=== PATIENT | female | born 1960 | race Caucasian/White ===

== ENCOUNTER 2017-03-11 20:53 | Emergency (ER) | payer MEDICARE, BC ==
[~2017-03-11] VITALS: Ht 172.7 cm; Wt 86.0 kg
[~2017-03-11 20:53] MED LIST: CELE200C PO; DILA4TAB10 PO; DOCU1CAP39 PO; DULO30 PO; DULO60 PO; EPIP0.3I IM; ESTR.3 PO; FENT75DI TD; LEVO.15 PO; LISI-363 PO; LORA-392 PO; PRAV20 PO; PROM25TA5 PO; PROT40TA PO; PROV200T11 PO; VITA20003 PO
[2017-03-11 20:56] VITALS: BP 142/90; PULSE 87; RESP 16; TEMP 98.7; O2SAT 98
[2017-03-11] MEDS ORDERED: CLINDAMYCIN INJ 600 MG in SODIUM CHLORIDE 0.9% INJ 100 ML IV ONE (22:15)
--- NOTE | 2017-03-11 22:27 | PD ---
HPI Chief Complaint: Skin Problem Time Seen by Provider: 22:23 Travel History International Travel<30 days: No Contact w/Intl Traveler<30days: No Traveled to known affect area: No History of Present Illness HPI 57-year-old female that presents to the ED for evaluation of possible infection to her report. Patient has a port on her right upper chest for infusions for IVG for her MS. She reports that she went to the ER yesterday at the [facility] and they attempted to get some access from the port 3 times and were unsuccessful. Per patient she had no issues until today when she noticed that her area around her port is swelling and erythematous and pain. The touch. She denies ever having like this before. No fevers chills or sweats. No nausea or vomiting. She denies any chest discomfort and to the area where the port this. She states that he feels like it swelling and the skin looks different from prior. She states that the main reason she came here today is because she wants to make sure it is not infected as she does have a cruise tomorrow. Per patient the pain is 5 out of 10. 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) Cardiovascular Problems: Yes (PACEMAKER) High Cholesterol: Yes Chemotherapy: No Chest Pain: Yes (stress related) Congestive Heart Failure: No COPD: No Cerebrovascular Accident: No Diabetes: Yes (PRE) Diminished Hearing: No Diverticulitis: Yes Endocrine: Yes Gastrointestinal Disorders: Yes (GASTROPARESIS) GERD: Yes Genitourinary: Yes (Urinary retention) Headaches: Yes Hiatal Hernia: Yes Hypertension: Yes Immune Disorder: No Implanted Vascular Access Dvce: Yes (MEDIPORT) Kidney Stones: Yes Musculoskeletal: Yes (chronic neck and back pain) Neurologic: Yes (MS) Psychiatric: Yes Reproductive: No Immunizations Current: Yes Migraines: Yes Radiation Therapy: No Renal Failure: No Seizures: No Sickle Cell Disease: No Sleep Apnea: Yes Thyroid Disease: Yes (hypothyroidism) Ulcer: No Menopausal: Yes : 4 Para: 4 Past Surgical History Abdominal Surgery: Yes (BOWEL RESECTION, UMBLICAL HERNIA) AICD: No Appendectomy: Yes Arteriovenous Shunt: No Body Medical Devices: PACER/PORT Cardiac Surgery: Yes (pacemaker, ABLATION) Cholecystectomy: Yes Ear Surgery: No Endocrine Surgery: No Eye Surgery: No Genitourinary Surgery: No Gynecologic Surgery: Yes (hysterectomy) Hysterectomy: Yes Insulin Pump: No Joint Replacement: No Neurologic Surgery: Yes (3 disc surgeries in neck) Oral Surgery: No Pacemaker: Yes (MEDTRONIC) Thoracic Surgery: No Other Surgery: Yes (BOWEL RESECTION, APPY, ABLATION, PART HYSTERECTOMY, NECK SURGERIES, PM) Social History Alcohol Use: No Tobacco Use: No Substance Use: No Allergies-Medications (Allergen,Severity, Reaction): Coded Allergies: Hydrochlorothiazide (Verified Allergy, Severe, HIVES, 03/11/17) Imuran (Verified Allergy, Severe, GI UPSET, 03/11/17) Latex (Verified Allergy, Severe, ANAPHYLAXIS, 03/11/17) Phenazopyridine (Verified Allergy, Severe, 03/11/17) Pyridium (Verified Allergy, Severe, HIVES, 03/11/17) Levaquin (Verified Allergy, Intermediate, Hives, 03/11/17) MRI PRECAUTION (Verified Adverse Reaction, Severe, NON REVO PACEMAKER 09/20 KMD, 03/11/17) PER PATIENT PACEMAKER PLACED 6 YEARS AGO *MDRO Multi-Drug Resistant Organism (Verified Adverse Reaction, Unknown, ) MRSA history per patient. MRSA PCR Screens NEGATIVE 12/13/14 & 12/16/14. CLEARED BY INFECTION CONTROL MRSA PCR Screen NEGATIVE - 08/26/15 Uncoded Allergies: TECFIDERA (Allergy, Severe, 09/02/13) Reported Meds & Prescriptions Reported Meds & Active Scripts Active Dilaudid (Hydromorphone HCl) 4 Mg Tab 4 Mg PO Q6HR PRN Phenergan 25 mg (Promethazine HCl) 25 Mg Tab 25 Mg PO Q6H PRN Duragesic 75 Mcg/Hr (Fentanyl) 1 Patch Patch 1 Patch TD Q3D Ativan (Lorazepam) 0.5 Mg Tab 0.5 Mg PO Q6H PRN Pravastatin Sodium 20 Mg Tab 1 Tab PO HS Colace 100 Mg Cap (Docusate Sodium) 100 Mg Cap 100 Mg PO BID PRN Synthroid 150 mcg (Levothyroxine Sodium) 150 Mcg Tab 150 Mcg PO DAILY@0600 Duloxetine HCl 30 Mg Cap 30 Mg PO DAILY Duloxetine HCl 60 Mg Cap 60 Mg PO HS 30 Days Celebrex (Celecoxib) 200 Mg Cap 200 Mg PO DAILY Provigil 200 Mg Tab (Modafinil) 200 Mg Tab 200 Mg PO DAILY Vitamin D (Cholecalciferol) 2,000 Unit Tab 2,000 Unit PO DAILY Protonix (Pantoprazole Sodium) 40 Mg Tabdr 40 Mg PO DAILY Reported Lisinopril 20 mg (Lisinopril) 20 Mg Tab 1 Tab PO DAILY Epipen (Epinephrine) 0.3 Mg Inj 0.3 Mg IM ONCE PRN Premarin (Estrogens Conjugated) 0.3 Mg Tab 0.3 Mg PO DAILY Review of Systems Except as stated in HPI: all other systems reviewed are Neg Physical Exam Narrative GENERAL: SKIN: Warm and dry. Patient has an area of erythema and swelling noted on the area of the right chest superior to the port. Warm to the touch. Slightly tender. Port itself cannot be seen but there is 3 puncture sites that appear to be from were they tried to access the port HEAD: Atraumatic. Normocephalic. EYES: Pupils equal and round. No scleral icterus. No injection or drainage. ENT: No nasal bleeding or discharge. Mucous membranes pink and moist. Tongue is midline. No uvula deviation. NECK: Trachea midline. No JVD. CARDIOVASCULAR: Regular rate and rhythm. No murmurs, S3, S4. RESPIRATORY: No accessory muscle use. Clear to auscultation. Breath sounds equal bilaterally. GASTROINTESTINAL: Abdomen soft, non-tender, nondistended. Hepatic and splenic margins not palpable. MUSCULOSKELETAL: Extremities without clubbing, cyanosis, or edema. No obvious deformities. Full range of motion of the upper and lower extremities bilaterally. 2+ pulses bilaterally. NEUROLOGICAL: Awake and alert. No obvious cranial nerve deficits. Motor grossly within normal limits. Five out of 5 muscle strength in the arms and legs. Normal speech. PSYCHIATRIC: Appropriate mood and affect; insight and judgment normal. Data Data Last Documented VS Vital Signs Date Time Temp Pulse Resp B/P Pulse Ox O2 Delivery O2 Flow Rate FiO2 03/11/17 20:56 98.7 87 16 142/90 98 Room Air Orders Basic Metabolic Panel (Bmp) (03/11/17 22:01) Complete Blood Count With Diff (03/11/17 22:01) Blood Culture (03/11/17 22:01) Iv Access Insert/Monitor (03/11/17 22:01) Clindamycin Inj (Cleocin Inj) (03/11/17 22:15) Chest, Single Ap (03/11/17 ) MDM Medical Decision Making Medical Screen Exam Complete: Yes Emergency Medical Condition: Yes Medical Record Reviewed: Yes Differential Diagnosis Infection versus cellulitis versus line infection Narrative Course 57-year-old female that presents to the ED for evaluation of possible infection to the site of the port. Patient was properly examined and was found to have signs and symptoms consistent appears to be possible infection. Labs and imaging ordered. Case was discussed in my attending who agrees with plan. Case will be signed out to my attending pending disposition. Demetrio Romero Mar 11, 2017 22:27
--- NOTE | 2017-03-11 22:41 | RADRPT ---
EXAM DATE/TIME: 03/11/2017 22:11 [facility] COMPARISON: CHEST SINGLE AP, November 29, 2015, 4:17. INDICATIONS : Chest pain. MEDICAL HISTORY : Multiple sclerosis. SURGICAL HISTORY : Pacemaker. Port placement. ENCOUNTER: Initial ACUITY: 1 day PAIN SCORE: 6/10 LOCATION: Bilateral chest FINDINGS: A single view of the chest demonstrates the lungs to be symmetrically aerated without evidence of mas s, infiltrate or effusion. The cardiomediastinal contours are unremarkable. Osseous structures are grossly intact. Cardiac pacer and right subclavian [id number] catheter with tip in the superior vena cava again no clarissa. CONCLUSION: No evidence of acute cardiopulmonary disease. Lonnie Hughes MD on March 11, 2017 at 22:38 Board Certified Radiologist. This report was verified electronically.
[2017-03-12 00:14] LABS: AUTOMATED NEUTROPHIL # 3.6 TH/MM3 (1.8-7.7); BASOPHIL % 0.8 % (0.0-2.0); EOSINOPHIL # 0.2 TH/MM3 (0-0.4); EOSINOPHIL % 3.2 % (0.0-4.0); HEMATOCRIT 31.6 % (35.0-46.0); HEMO FLAGS DIFF FINAL; LYMPH % 29.2 % (9.0-44.0); LYMPHOCYTE # 1.7 TH/MM3 (1.0-4.8); MEAN CELL VOLUME 87.4 FL (80.0-100.0); MEAN CORPUSCULAR HEMOGLOBIN 29.4 PG (27.0-34.0); MEAN CORPUSCULAR HGB CONC 33.6 % (32.0-36.0); MONO % 4.9 % (0.0-8.0); NEUT % 61.9 % (16.0-70.0); PLATELET COUNT 227 TH/MM3 (150-450); RED BLOOD COUNT 3.62 MIL/MM3 (4.00-5.30); RED CELL DISTRIBUTION WIDTH 12.6 % (11.6-17.2); WHITE BLOOD COUNT 5.8 TH/MM3 (4.0-11.0)
[2017-03-12] MEDS ORDERED: PROM25TA10 PO (01:01)
[2017-03-12] MEDS ORDERED: VITA20003 (01:01)
[2017-03-12] MEDS ORDERED: CELE200C PO (01:01)
[2017-03-12] MEDS ORDERED: LISI-515 PO (01:01)
[2017-03-12] MEDS ORDERED: DULO1CAP2 PO (01:01)
[2017-03-12] MEDS ORDERED: LORA-392 PO (01:01)
[2017-03-12] MEDS ORDERED: EPIN1INJ17 IM (01:01)
[2017-03-12] MEDS ORDERED: LEVO.15 PO (01:01)
[2017-03-12] MEDS ORDERED: MODA200T12 PO (01:01)
[2017-03-12] MEDS ORDERED: PRAV20TA2 PO (01:01)
[2017-03-12] MEDS ORDERED: FENT75DI T-DERMAL (01:01)
[2017-03-12] MEDS ORDERED: DULO1CAP3 PO (01:01)
[2017-03-12] MEDS ORDERED: COLA100C (01:01)
[2017-03-12] MEDS ORDERED: ESTR.3 PO (01:01)
[2017-03-12] MEDS ORDERED: PROT40TA PO (01:01)
[2017-03-12] MEDS ORDERED: DILA4TAB2 PO (01:01)
[2017-03-12 01:08] LABS: BICARBONATE 25.1 MEQ/L (21.0-32.0); POTASSIUM 4.3 MEQ/L (3.5-5.1)
--- NOTE | 2017-03-12 01:17 | PD ---
Physical Exam Narrative GENERAL: Well-nourished, well-developed patient. SKIN: Warm and dry. No erythema or warmth overlying port, prior sites with attempted access noted with minimal swelling associated HEAD: Normocephalic and atraumatic. EYES: No injection or drainage. ENT: No nasal drainage noted. NECK: Supple, trachea midline. CARDIOVASCULAR: Regular rate and rhythm RESPIRATORY: No increased effort. No accessory muscle use. NEUROLOGICAL: Awake and alert. Motor and sensory grossly within normal limits. Normal speech. Data Data Last Documented VS Vital Signs Date Time Temp Pulse Resp B/P Pulse Ox O2 Delivery O2 Flow Rate FiO2 03/11/17 20:56 98.7 87 16 142/90 98 Room Air Orders Basic Metabolic Panel (Bmp) (03/11/17 22:01) Complete Blood Count With Diff (03/11/17 22:01) Blood Culture (03/11/17 22:01) Iv Access Insert/Monitor (03/11/17 22:01) Clindamycin Inj (Cleocin Inj) (03/11/17 22:15) Chest, Single Ap (03/11/17 ) Labs Laboratory Tests Test 03/11/17 22:45 White Blood Count 5.8 TH/MM3 Red Blood Count 3.62 MIL/MM3 Hemoglobin 10.6 GM/DL Hematocrit 31.6 % Mean Corpuscular Volume 87.4 FL Mean Corpuscular Hemoglobin 29.4 PG Mean Corpuscular Hemoglobin 33.6 % Concent Red Cell Distribution Width 12.6 % Platelet Count 227 TH/MM3 Mean Platelet Volume 9.3 FL Neutrophils (%) (Auto) 61.9 % Lymphocytes (%) (Auto) 29.2 % Monocytes (%) (Auto) 4.9 % Eosinophils (%) (Auto) 3.2 % Basophils (%) (Auto) 0.8 % Neutrophils # (Auto) 3.6 TH/MM3 Lymphocytes # (Auto) 1.7 TH/MM3 Monocytes # (Auto) 0.3 TH/MM3 Eosinophils # (Auto) 0.2 TH/MM3 Basophils # (Auto) 0.0 TH/MM3 CBC Comment DIFF FINAL Differential Comment Sodium Level 139 MEQ/L Potassium Level 4.3 MEQ/L Chloride Level 106 MEQ/L Carbon Dioxide Level 25.1 MEQ/L Anion Gap 8 MEQ/L Blood Urea Nitrogen 18 MG/DL Creatinine 0.95 MG/DL Estimat Glomerular Filtration 61 ML/MIN Rate Random Glucose 88 MG/DL Calcium Level 8.4 MG/DL [facility] Supervised Visit with LOUIS: Yes Interpretation(s) CBC & BMP Diagram 03/11/17 22:45 Last 24 hours Impressions Chest X-Ray 03/11/17 0000 Signed Impressions: Service Date/Time: Saturday, March 11, 2017 22:11 - CONCLUSION: No evidence of acute cardiopulmonary disease. Lonnie Hughes MD Narrative Course I, Dr. jansen, have reviewed the advance practice practitioner's documentation and am in agreement, met with the patient face to face, made the diagnosis, and the medical decision making was done by me. *My assessment and Findings: 57-year-old female presents for evaluation of her port with concern of swelling over the site with multiple access attempts yesterday. Blood work is normal. No signs of infection externally. Agrees to follow-up with primary in given return instructions Diagnosis Primary Impression: Port-a-cath in place Patient Instructions: General Instructions Additional Instruction: return as needed, follow with primary this week Med/Other Pt SpecificInfo: No Change to Meds Disposition: 01 DISCHARGE HOME Condition: Stable Jessica Jansen MD Mar 12, 2017 01:17
== END 2017-03-12 02:00 | disposition home or self-care (01) ==
LOC: NEPC 20:53
DX: T82.848A Pain due to vascular prosthetic devices, implants and grafts, initial encounter (principal); Y82.8 Other medical devices associated with adverse incidents; Y92.538 Other ambulatory health services establishments as the place of occurrence of the external cause
CPT/HCPCS: 71010; 80048; 85025; 87040; 96365; 99284

== ENCOUNTER 2018-03-26 17:12 | Inpatient (IN) ==
--- NOTE | 2018-03-26 17:34 | ED ---
HPI General Chief complaint: Weakness Stated complaint: general weakness Time Seen by Provider: 03/26/18 17:26 Source: patient Mode of arrival: EMS Limitations: no limitations History of Present Illness HPI narrative: Patient is a 58-year-old female history of MS, who comes in complaining of weakness and pain all over. She says her legs are so weak she is unable to walk. She says she feels like she is having difficulty urinating. And she complains of pain from her head to put this. She says she has not taken anything for pain because she was worried she would vomit. She has a prescription for Phenergan, but says that that was not working for her. She denies fever chills. She has been here multiple times for this, but recently says she is moved to [place]. She says she follows with a Dr. Acosta of neurology in [place]. She says she was receiving IVIG and IV steroids every 2 weeks that was controlling her MS, but she has not had a treatment in the past month. She says her current symptoms have been going on since yesterday. She was seen here 2 days ago and diagnosed with a UTI. She says the only things that work for her are Phenergan and Dilaudid. Severity is moderate. Related Data Home Medications Medication Instructions Recorded Confirmed Iv Ig And Steroids Injections 03/20/18 amlodipine 10 mg PO DAILY 03/20/18 03/20/18 celecoxib [Celebrex] 200 mg PO BID 03/20/18 03/26/18 cholecalciferol (vitamin D3) 2,000 unit PO DAILY 03/20/18 03/20/18 [Vitamin D3] duloxetine [Cymbalta] 40 mg PO HS 03/20/18 03/20/18 duloxetine [Cymbalta] 60 mg PO DAILY 03/20/18 03/26/18 levothyroxine 150 mcg PO DAILY 03/20/18 03/20/18 pantoprazole [Protonix] 40 mg PO BID 03/20/18 03/20/18 ranitidine HCl [Zantac] 300 mg PO HS 03/20/18 03/20/18 amlodipine 2.5 mg PO DAILY 03/26/18 03/26/18 modafinil 100 mg PO DAILY 03/26/18 03/26/18 promethazine 12.5 mg PO Q8H PRN 03/26/18 03/26/18 Previous Rx's Medication Instructions Recorded cephalexin [Keflex] 500 mg PO BID 7 Days #14 cap 03/21/18 hydrocodone-acetaminophen [[place]] 1 tab PO Q8H PRN #5 tab 03/21/18 Allergies Allergy/AdvReac Type Severity Reaction Status Date / Time azathioprine Allergy Severe GI UPSET Verified 03/26/18 17:24 hydrochlorothiazide Allergy Severe HIVES Verified 03/26/18 17:24 latex Allergy Severe ANAPHYLAXIS Verified 03/26/18 17:24 phenazopyridine Allergy Severe Rash Verified 03/26/18 17:24 levofloxacin Allergy Intermediate Hives Verified 03/26/18 17:24 TECFIDERA Allergy Severe Hives Uncoded 03/20/18 22:17 MRI PRECAUTION AdvReac Severe NON REVO Uncoded 03/20/18 22:17 PACEMAKER 09/20/12 KMD *MDRO Multi-Drug Resistant AdvReac Unknown Vomiting Uncoded 03/20/18 22:17 Organism Review of Systems Except as stated in HPI: all other systems reviewed are negative Constitutional Denies chills and Denies fever(s) ENT Denies dizziness Cardiovascular Denies chest pain and Denies dyspnea Gastrointestinal Reports nausea Genitourinary Reports difficulty voiding Musculoskeletal Reports myalgias and Reports arthralgias Integumentary/Breasts Denies change in pigmentation and Denies lesions Neurologic Reports weakness PMFSH Medical History Medical History Depression (Acute) GERD (gastroesophageal reflux disease) (Acute) H/O: hysterectomy (Acute) Multiple sclerosis (Acute) Pacemaker (Acute) Sick sinus syndrome (Acute) Umbilical hernia (Acute) Surgical History Surgical History H/O prior ablation treatment (Acute) History of appendectomy (Acute) History of bowel resection (Acute) History of total knee replacement (Acute) Hx of cholecystectomy (Acute) Hx of foot surgery (Acute) Social History Social History Substance History: No History of Abuse Second Hand Smoke Exposure: No Smoking Status: Never smoker How Often Do You Have a Drink Containing Alcohol: Never Recent Travel in [facility] within the Last 8 Weeks: No Recent Out of Country Travel within the Last 8 Weeks: No Immunization History Tetanus Immunization: Unsure Hx Influenza Vaccine This Season: No Exam Narrative Exam Narrative: GENERAL: Awake and alert, in no acute distress. SKIN: Focused skin assessment warm/dry. No wounds or signs of infection. HEAD: Atraumatic. Normocephalic. EYES: Pupils equal and round and reactive . No scleral icterus. EOMI. ENT: Mucous membranes pink and moist. NECK: Trachea midline. No JVD. CARDIOVASCULAR: Regular rate and rhythm. No murmur appreciated. RESPIRATORY: No accessory muscle use. Clear to auscultation. Breath sounds equal bilaterally. GASTROINTESTINAL: Abdomen soft, non-tender, nondistended. MUSCULOSKELETAL: No obvious deformities. No clubbing. No cyanosis. No edema. NEUROLOGICAL: Awake and alert. No obvious cranial nerve deficits. strength 3/5 both legs. Normal speech. PSYCHIATRIC: Appropriate mood and affect; insight and judgment normal. Course Initial Documented Vital Signs Temperature 98.1 F 03/26/18 17:19 Pulse Rate 89 03/26/18 17:19 Respiratory Rate 20 03/26/18 17:19 Blood Pressure 171/109 H 03/26/18 17:19 Pulse Oximetry 97 03/26/18 17:19 Last Documented Vital Signs Temperature 98.1 F 03/26/18 17:19 Pulse Rate 78 03/26/18 18:22 Respiratory Rate 20 03/26/18 18:22 Blood Pressure 163/95 H 03/26/18 18:22 Pulse Oximetry 96 03/26/18 18:22 Medical Decision Making MDM Narrative Medical decision making narrative: Patient is a 58-year-old female who comes in complaining of an MS flare. Exam shows weakness of the legs. Patient states she is unable to urinate. Saini catheter placed. Labs sent show no acute abnormalities. CT head ordered shows no acute abnormalities. Patient offered Percocet, but refused it. Given a dose of Phenergan. Toradol ordered. I spoke with Dr. Carrillo who suggests giving her a gram of Solu-Medrol. Differential Diagnosis Differential Diagnosis: MS flare versus UTI versus electrolyte abnormality Medical Records Medical records reviewed: Yes I reviewed the patient's medical records. Lab Data Lab results reviewed: Yes I reviewed the patient's lab results. Result diagrams: 03/26/18 18:15 07/29/18 18:15 Lab Results 03/26/18 03/26/18 Range/Units 18:15 18:15 CBC w Diff Auto diff final WBC 4.6 (4.0-11.0) th/mm3 RBC 3.93 L (4.00-5.30) mil/mm3 Hgb 11.5 L (11.6-15.3) gm/dL Hct 34.4 L (35.0-46.0) % MCV 87.6 (80.0-100.0) fL MCH 29.3 (27.0-34.0) pg MCHC 33.5 (32.0-36.0) % RDW 12.9 (11.6-17.2) % Plt Count 368 (150-450) th/mm3 MPV 8.3 (7.0-11.0) fL Neut % (Auto) 59.9 (16.0-70.0) % Lymph % (Auto) 29.1 (9.0-44.0) % [place] % (Auto) 5.7 (0.0-8.0) % Eos % (Auto) 4.7 H (0.0-4.0) % Baso % (Auto) 0.6 (0.0-2.0) % Neut # (Auto) 2.8 (1.8-7.7) th/mm3 Lymph # (Auto) 1.3 (1.0-4.8) th/mm3 [place] # (Auto) 0.3 (0.0-0.9) th/mm3 Eos # (Auto) 0.2 (0.0-0.4) th/mm3 Baso # (Auto) 0.0 (0.0-0.2) th/mm3 WBC Differential . Differential Comment . Sodium 140 (136-145) meq/L Potassium 4.1 (3.5-5.1) meq/L Chloride 105 (98-107) meq/L Carbon Dioxide 27.3 (21.0-32.0) meq/L Anion Gap 8 (5-15) meq/L BUN 12 (7-18) mg/dL Creatinine 0.80 (0.50-1.00) mg/dL Estimated GFR 74 L (>89) mL/min Random Glucose 96 (74-106) mg/dL Calcium 8.7 (8.5-10.1) mg/dL Total Bilirubin 0.3 (0.2-1.0) mg/dL AST 28 (15-37) U/L ALT 33 (10-53) U/L Total Protein 8.0 D (6.4-8.2) g/dL Albumin 3.2 L (3.4-5.0) g/dL Imaging Data Radiologist's impression: Head CT 03/26/18 17:45 CONCLUSION: 1. Negative for an acute process . ECG Data EKG Prior to Arrival: No Attestation: I personally reviewed and interpreted this ECG as follows: Interpretation: ECG shows normal sinus rhythm at a rate of 82, no ST elevation or depression, normal intervals Discharge Plan Discharge Disposition Patient Disposition: 30 Still Patient Discharge Condition Condition: Stable Discharge Details Diagnosis: Multiple sclerosis exacerbation Physicians Team ED Provider: Jaclyn Lees Primary Care Provider: UNKNOWN, Rxs /Orders / Referrals /Forms Prescriptions: No Action amlodipine 10 mg Tablet 10 mg PO DAILY RF: 0 pantoprazole [Protonix] 40 mg Tablet,Delayed Release (Dr/Ec) 40 mg PO BID RF: 0 ranitidine HCl [Zantac] 150 mg Tablet 300 mg PO HS RF: 0 duloxetine [Cymbalta] 20 mg Capsule,Delayed Release(Dr/Ec) 60 mg PO DAILY RF: 0 duloxetine [Cymbalta] 20 mg Capsule,Delayed Release(Dr/Ec) 40 mg PO HS RF: 0 celecoxib [Celebrex] 50 mg Capsule 200 mg PO BID RF: 0 cholecalciferol (vitamin D3) [Vitamin D3] 2,000 unit Capsule 2,000 unit PO DAILY RF: 0 levothyroxine 125 mcg Capsule 150 mcg PO DAILY RF: 0 Iv Ig And Steroids Injections RF: 0 hydrocodone-acetaminophen [[place]] 5-325 mg tablet 1 tab PO Q8H PRN (Reason: pain) Qty: 5 RF: 0 cephalexin [Keflex] 500 mg capsule 500 mg PO BID 7 Days Qty: 14 RF: 0 promethazine 12.5 mg Tablet 12.5 mg PO Q8H PRN (Reason: Nausea) RF: 0 amlodipine 2.5 mg Tablet 2.5 mg PO DAILY RF: 0 modafinil 100 mg Tablet 100 mg PO DAILY RF: 0 Discharge Interventions Interventions: Vital Signs Last Done: 03/26/18 18:22 Status ED Status: With Doctor
[2018-03-26] MEDS ORDERED: Sod Chloride 0.9% Inj 1,000 ML IV.SIG ONE (17:45)
[2018-03-26 18:28] LABS: Baso % (Auto) 0.6 % (0.0-2.0); Eos # (Auto) 0.2 th/mm3 (0.0-0.4); Eos % (Auto) 4.7 % (0.0-4.0); Hematocrit 34.4 % (35.0-46.0); Hemoglobin 11.5 gm/dL (11.6-15.3); Lymph # (Auto) 1.3 th/mm3 (1.0-4.8); Lymph % (Auto) 29.1 % (9.0-44.0); Mean Corpuscular HGB Conc 33.5 % (32.0-36.0); Mean Corpuscular Hemoglobin 29.3 pg (27.0-34.0); Mean Corpuscular Volume 87.6 fL (80.0-100.0); Mean Platelet Volume 8.3 fL (7.0-11.0); Mono # (Auto) 0.3 th/mm3 (0.0-0.9); Mono % (Auto) 5.7 % (0.0-8.0); Neut # (Auto) 2.8 th/mm3 (1.8-7.7); Neut % (Auto) 59.9 % (16.0-70.0); Platelet Count 368 th/mm3 (150-450); Red Blood Count 3.93 mil/mm3 (4.00-5.30); Red Cell Distribution Width 12.9 % (11.6-17.2); White Blood Count 4.6 th/mm3 (4.0-11.0)
[2018-03-26 18:38] LABS: Chloride 105 meq/L (98-107); Potassium 4.1 meq/L (3.5-5.1); Sodium 140 meq/L (136-145)
[2018-03-26] MEDS ORDERED: Ketorolac Inj 30 MG/ML (IVP) Vial IV.PUSH ONE ×2 (18:38→19:30)
[2018-03-26 18:43] LABS: Albumin 3.2 g/dL (3.4-5.0); Anion Gap 8 meq/L (5-15); Blood Urea Nitrogen 12 mg/dL (7-18); Calcium 8.7 mg/dL (8.5-10.1); Carbon Dioxide 27.3 meq/L (21.0-32.0); Glucose,Random 96 mg/dL (74-106)
--- NOTE | 2018-03-26 18:43 | CT ---
EXAM DATE: 03/26/2018 6:39 PM EDT AGE/SEX: 58 years / Female INDICATIONS: Generalized weakness, mostly left side. CLINICAL DATA: This is the patient's initial encounter. Patient reports that signs and symptoms have been present for 1 week and indicates a pain score of 0/10. MEDICAL/SURGICAL HISTORY: Cardiovascular disease. Multiple sclerosis. Gastroesophageal reflux dis ease. Pacemaker. Appendectomy. Cholecystectomy. Hysterectomy. Bowel resection. Orthopedic surgery. Cervical fusion. RADIATION DOSE: 61.17 CTDI (mGy) COMPARISON: [facility], CT BRAIN W/O CONTRAST, 11/25/2015. . TECHNIQUE: CT of the head without contrast. Using automated exposure control and adjustment of the mA and/or kV according to patient size, radiation dose was kept as low as reasonably achievable to ob tain optimal diagnostic quality images. DICOM format image data is available electronically for revi ew and comparison. FINDINGS: Cerebrum: The ventricles are normal for age. Moderate periventricular white matter changes. No evide nce of midline shift, mass lesion, hemorrhage or acute infarction. No extraaxial fluid collections a re seen. Posterior Fossa: The cerebellum and brainstem are intact. The 4th ventricle is midline. The cerebe llopontine angle is unremarkable. Extracranial: The visualized portion of the orbits is intact. Skull: The calvaria is intact. No evidence of skull fracture. CONCLUSION: 1. Negative for an acute process . Electronically signed by: Leland Reina MD 03/26/2018 6:42 PM EDT
[2018-03-26 18:46] LABS: Alanine Aminotransferase 33 U/L (10-53); Aspartate Aminotransferase 28 U/L (15-37)
[2018-03-26 18:47] LABS: Glomerular Filtration Rate 74 mL/min (>89)
[2018-03-26 18:49] LABS: Alkaline Phosphatase 154 U/L (45-117)
[2018-03-26 19:00] LABS: Creatine Kinase 66 U/L (26-192)
[2018-03-26 19:06] LABS: Bilirubin,Urine Negative (Negative); Clarity,Urine Clear (Clear); Color,Urine Yellow (Yellw/Straw); Glucose,Urine (UA) Negative (Negative); Leukocyte Esterase,Urine Negative (Negative); Nitrite,Urine Negative (Negative); PH,Urine 6.5 (5.0-8.5); Specific Gravity,Urine Less/Equal 1.005 (1.002-1.035); Urobilinogen,Urine 0.2 mg/dL (Less than 2)
[2018-03-26 19:10] LABS: RBC,Urine 0-3 /hpf (0-3); Squamous Epithelial Cell,Urine 0-5 /hpf (0-5); WBC,Urine 0-5 /hpf (0-5)
[2018-03-26] MEDS ORDERED: Acetaminophen 325 MG Tablet PO PRN (19:16)
[2018-03-26] MEDS ORDERED: Bisacodyl 10 MG Supp RECTAL PRN (19:16)
[2018-03-26] MEDS ORDERED: MethylPREDNISolone Sod Suc Inj 1,000 MG in Dextrose 5% in Water Inj 100 ML IV.SIG ONE ×2 (20:00)
[2018-03-26] MEDS: MethylPREDNISolone Sod Suc Inj 1,000 MG in Dextrose 5% in Water Inj 100 ML IV.SIG ONE ×4 (21:45→22:20)
[2018-03-26] MEDS: Sod Chloride 0.9% Inj 1,000 ML IV.CONT SCH (23:35)
[2018-03-26] MEDS: Morphine Inj 4 MG/ML Vial IV.PUSH PRN (23:36)
[2018-03-26] MEDS: Senna/Docusate Sodium 8.6/50 MG Tablet PO SCH (23:37)
[2018-03-26] MEDS: Temazepam 15 MG Capsule PO PRN (23:44)
[2018-03-27 06:26] LABS: Baso % (Auto) 0.2 % (0.0-2.0); Eos % (Auto) 0.2 % (0.0-4.0); Hematocrit 35.1 % (35.0-46.0); Hemoglobin 11.7 gm/dL (11.6-15.3); Lymph # (Auto) 0.4 th/mm3 (1.0-4.8); Lymph % (Auto) 7.6 % (9.0-44.0); Mean Corpuscular HGB Conc 33.4 % (32.0-36.0); Mean Corpuscular Hemoglobin 29.6 pg (27.0-34.0); Mean Corpuscular Volume 88.7 fL (80.0-100.0); Mean Platelet Volume 9.1 fL (7.0-11.0); Mono % (Auto) 0.4 % (0.0-8.0); Neut % (Auto) 91.6 % (16.0-70.0); Platelet Count 365 th/mm3 (150-450); Red Blood Count 3.96 mil/mm3 (4.00-5.30); Red Cell Distribution Width 12.8 % (11.6-17.2); White Blood Count 5.4 th/mm3 (4.0-11.0)
[2018-03-27 06:30] LABS: Chloride 104 meq/L (98-107); Potassium 4.4 meq/L (3.5-5.1); Sodium 138 meq/L (136-145)
[2018-03-27 06:35] LABS: Albumin 3.1 g/dL (3.4-5.0); Anion Gap 7 meq/L (5-15); Blood Urea Nitrogen 16 mg/dL (7-18); Carbon Dioxide 26.8 meq/L (21.0-32.0); Glucose,Random 176 mg/dL (74-106)
[2018-03-27 06:38] LABS: Alanine Aminotransferase 40 U/L (10-53); Aspartate Aminotransferase 31 U/L (15-37); Glomerular Filtration Rate 60 mL/min (>89)
[2018-03-27 06:40] LABS: Total Protein 8.3 g/dL (6.4-8.2)
[2018-03-27 06:41] LABS: Alkaline Phosphatase 158 U/L (45-117)
[2018-03-27] MEDS: Sod Chloride 0.9% Inj 1,000 ML IV.CONT SCH ×2 (06:46→18:09)
[2018-03-27] MEDS: Morphine Inj 4 MG/ML Vial IV.PUSH PRN ×4 (07:33→20:20)
[2018-03-27] MEDS: Duloxetine 60 MG DR Capsule PO SCH ×2 (08:28→08:32)
[2018-03-27] MEDS: Senna/Docusate Sodium 8.6/50 MG Tablet PO SCH ×2 (08:28→20:17)
--- NOTE | 2018-03-27 12:12 | P.HPIM ---
History of Present Illness Primary Care Physician: UNKNOWN Chief Complaint: Weakness History of Present Illness: Patient is a 58-year-old female came to the hospital complaining of weakness for 2 days worse in the lower extremities and left upper extremity. She recently had a urinary tract infection and had been out of her usual neurological follow-up due to recent back surgery and on vacation to [place]. She normally takes Cymbalta, Celebrex and modafinil. She had also been on IVIG and steroids but this is what she had been out of since the surgical procedures. She was doing reasonably well until she developed a urinary tract infection and she came to the emergency room for this and received some Keflex. She also felt weak after she went to the beach and was overheated and finally became so weak that she came to the emergency room for further evaluation. She has had difficult ambulating and urinating and blurred vision. She appears to have MS flare and has been admitted for evaluation and treatment of the same. She did receive some Phenergan for some nausea which improved her symptoms and has been started on IV Solu-Medrol. - Diagnosis (1) Multiple sclerosis exacerbation (2) Urinary retention (3) Nausea & vomiting (4) CIDP (chronic inflammatory demyelinating polyneuropathy) (5) HTN (hypertension) (6) SSS (sick sinus syndrome) (7) Anxiety Inpatient Certification: I certify that the inpatient services were ordered in accordance with Medicare regulations governing the order. This includes certification that hospital inpatient services are reasonable and necessary and in the case of services not specified as inpatient-only under 42 CFR 419.22(n), that they are appropriately provided as inpatient services in accordance to with the 2-midnight benchmark under 43 CFR 412.3(e) Estimated Total Length of Stay (Days): 2 Plans for Post Hospital Care: Not yet determined Review of Systems All other systems reviewed negative except as stated in HPI [facility] - History History Provided By: Patient - Medical History Medical History: Medical History (Last Updated 03/27/18 @ 12:07 by Cynthia Carreon MD) Pacemaker (Acute) H/O: hysterectomy Depression GERD (gastroesophageal reflux disease) Multiple sclerosis Sick sinus syndrome Umbilical hernia - Surgical History Surgical History: Surgical History (Last Reviewed 03/27/18 @ 12:06 by Cynthia Carreon MD) H/O prior ablation treatment History of appendectomy History of bowel resection History of total knee replacement Hx of cholecystectomy Hx of foot surgery - Family History Family History: Family History (Last Updated 03/27/18 @ 12:08 by Cynthia Carreon MD) Other Lupus Multiple sclerosis Scleroderma - Tobacco History Second Hand Smoke Exposure: No Tobacco Use In Past 30 Days: No Smoking Status: Never smoker - Alcohol History How Often Do You Have a Drink Containing Alcohol: Monthly or less - Substance Use History Substance History: No History of Abuse - Travel History Recent Travel in the [place] Within the Last 8 Weeks: No Recent Travel Out of the Country Within the Last 8 Weeks: No - Immunization History Tetanus Immunization: Unsure Hx Influenza Vaccine This Season: No Medications and Allergies Active Medications: Active Medications Acetaminophen (Tylenol) 650 mg PO Q4H PRN PRN Reason: Temp > 100.4 Hydrocodone Bitart/Acetaminophen ([place] 10/325) 1 tab PO Q4H PRN PRN Reason: PAIN 3-5 Al Hydroxide/Mg Hydroxide (Milk Of Magnesia Liq) 30 ml PO Q12H PRN PRN Reason: Mild Constipation Bisacodyl (Dulcolax Supp) 10 mg RECTAL DAILY PRN PRN Reason: SEVERE CONSITIPATION Duloxetine HCl (Cymbalta) 60 mg PO DAILY [facility] Last Admin: 03/27/18 08:32 Dose: Not Given Sodium Chloride (Ns Inj) 1,000 mls @ 100 mls/hr IV.CONT .Q10H [facility] Last Infusion: 03/27/18 08:29 Dose: Infused Lactulose (Lactulose Liq) 30 ml PO DAILY PRN PRN Reason: SEVERE CONSITIPATION Morphine Sulfate (Morphine Inj) 2 mg IV.PUSH Q4H PRN PRN Reason: PAIN 6-10 Last Admin: 03/27/18 11:16 Dose: 2 mg Non-Formulary Medication (Amlodipine [Amlodipine]) 2.5 mg PO DAILY [facility] Non-Formulary Medication (Celecoxib [Celebrex]) 200 mg PO BID [facility] Non-Formulary Medication (Levothyroxine [Levothyroxine]) 150 mcg PO DAILY [facility] Non-Formulary Medication (Modafinil [Modafinil]) 100 mg PO DAILY [facility] Non-Formulary Medication (Ranitidine Hcl [Zantac]) 300 mg PO HS [facility] Ondansetron HCl (Zofran Inj) 4 mg IV.PUSH Q6H PRN PRN Reason: NAUSEA OR VOMITING Last Admin: 03/26/18 23:36 Dose: 4 mg Pantoprazole Sodium (Protonix) 40 mg PO BID [facility] Last Admin: 03/27/18 08:28 Dose: 40 mg Senna/Docusate Sodium (Dominga-Colace) 1 tab PO BID [facility] Last Admin: 03/27/18 08:28 Dose: 1 tab Sennosides (Senokot) 17.2 mg PO Q12H PRN PRN Reason: Moderate Constipation Temazepam (Restoril) 15 mg PO HS PRN PRN Reason: INSOMNIA Last Admin: 03/26/18 23:44 Dose: 15 mg Allergies Allergy/AdvReac Type Severity Reaction Status Date / Time azathioprine Allergy Severe GI UPSET Verified 03/26/18 17:24 hydrochlorothiazide Allergy Severe HIVES Verified 03/26/18 17:24 latex Allergy Severe ANAPHYLAXIS Verified 03/26/18 17:24 phenazopyridine Allergy Severe Rash Verified 03/26/18 17:24 levofloxacin Allergy Intermediate Hives Verified 03/26/18 17:24 lisinopril AdvReac Cough Verified 03/27/18 12:04 TECFIDERA Allergy Severe Hives Uncoded 03/20/18 22:17 MRI PRECAUTION AdvReac Severe NON REVO Uncoded 03/20/18 22:17 PACEMAKER 09/20/12 KMD *MDRO Multi-Drug Resistant AdvReac Unknown Vomiting Uncoded 03/20/18 22:17 Organism Home Medications Medication Instructions Recorded Confirmed Type Iv Ig And Steroids Injections 03/20/18 History celecoxib [Celebrex] 200 mg PO BID 03/20/18 03/26/18 History cholecalciferol (vitamin D3) 2,000 unit PO DAILY 03/20/18 03/26/18 History [Vitamin D3] duloxetine [Cymbalta] 30 mg PO DAILY 03/20/18 03/27/18 History duloxetine [Cymbalta] 60 mg PO HS 03/20/18 03/27/18 History levothyroxine 150 mcg PO DAILY 03/20/18 03/26/18 History pantoprazole [Protonix] 40 mg PO BID 03/20/18 03/26/18 History ranitidine HCl [Zantac] 300 mg PO HS 03/20/18 03/26/18 History amlodipine 2.5 mg PO DAILY 03/26/18 03/26/18 History modafinil 100 mg PO DAILY 03/26/18 03/26/18 History promethazine 12.5 mg PO Q8H PRN 03/26/18 03/26/18 History Exam Vital signs: Vital Signs 03/26/18 17:19 03/26/18 18:22 03/26/18 19:30 Temperature 98.1 F Pulse Rate 89 78 88 Respiratory Rate 20 20 20 Blood Pressure 171/109 H 163/95 H 142/74 H Pulse Oximetry 97 96 03/26/18 21:43 03/26/18 21:53 03/27/18 00:00 Temperature 98.2 F 98.2 F Pulse Rate 84 79 82 Respiratory Rate 18 16 Blood Pressure 147/82 H 128/75 125/70 Pulse Oximetry 98 95 96 03/27/18 08:00 Temperature 98.2 F Pulse Rate 91 H Respiratory Rate 18 Blood Pressure 133/71 Pulse Oximetry 95 Intake & Output 03/26/18 03/27/18 03/27/18 18:59 06:59 18:59 Intake Total 2116 / 2116 1000 / 1000 Output Total 450 / 450 Balance 1666 / 1666 1000 / 1000 Weight 90.5 kg 98.9 kg Intake: IV 2116 / 2116 1000 / 1000 NS Inj 1,000 ML @ 100 mls/hr IV 1000 / 1000 1000 / 1000 .CONT .Q10H [facility] Rx#:[id number] SoluMEDROL Inj 1,000 MG In D5W 116 / 116 Inj 100 ML @ 116 mls/hr IV.SIG ONCE ONE Rx#:[id number] NS Inj 1,000 ML @ Wide Open IV. 1000 / 1000 SIG BOLUS ONE Rx#:[id number] Output: Urine 0 / 0 Urine Amount (Catheter) 450 / 450 Indwelling Urethral Catheter 450 / 450 Other: Weight On Admission 98.9 kg Narrative: GENERAL: Well-nourished, well-developed patient. Complaining of discomfort in left upper extremity and bilateral lower extremity SKIN: Warm and dry. HEAD: Normocephalic. EYES: No scleral icterus. No injection or drainage. NECK: Supple, trachea midline. No JVD or lymphadenopathy. CARDIOVASCULAR: Regular rate and rhythm with 3 out of 6 systolic murmurs, gallops, or rubs. RESPIRATORY: Breath sounds equal bilaterally. No accessory muscle use. GASTROINTESTINAL: Abdomen soft, non-tender, nondistended. MUSCULOSKELETAL: No cyanosis, or edema. BACK: Nontender without obvious deformity. No CVA tenderness. NEUROLOGICAL: Awake and alert. Cranial nerves II through XII intact. Motor and sensory grossly within normal limits. 2out of 5 muscle strength in lower extremity and left upper extremity muscle groups. Normal speech. Results - Labs CBC & Chem 7: 03/27/18 04:50 03/27/18 04:50 Labs: Short CBC 03/26/18 03/27/18 Range/Units 18:15 04:50 WBC 4.6 5.4 (4.0-11.0) th/mm3 Hgb 11.5 L 11.7 (11.6-15.3) gm/dL Hct 34.4 L 35.1 (35.0-46.0) % Plt Count 368 365 (150-450) th/mm3 BMP 03/26/18 03/27/18 18:15 04:50 Sodium 140 138 Potassium 4.1 4.4 Chloride 105 104 Carbon Dioxide 27.3 26.8 BUN 12 16 Creatinine 0.80 0.96 Calcium 8.7 9.0 Cardiac Enzymes 03/26/18 Range/Units 18:15 Total Creatine Kinase 66 (26-192) U/L Liver Function 03/26/18 03/27/18 Range/Units 18:15 04:50 Total Bilirubin 0.3 0.3 (0.2-1.0) mg/dL AST 28 31 (15-37) U/L ALT 33 40 (10-53) U/L Alkaline Phosphatase 154 H 158 H (45-117) U/L Albumin 3.2 L 3.1 L (3.4-5.0) g/dL Urine 03/26/18 Range/Units 19:00 Urine Color Yellow (Yellw/Straw) Urine Clarity Clear (Clear) Urine pH 6.5 (5.0-8.5) Ur Specific [place] Less/equal 1.005 (1.002-1.035) Urine Protein Negative (Neg-Trace) mg/dL Urine Glucose (UA) Negative (Negative) mg/dL - Imaging Impressions Head CT 03/26/18 17:45 CONCLUSION: 1. Negative for an acute process . Caprini VTE Risk Assessment Caprini VTE Risk Assessment: Moderate/High Risk (score >= 2) Caprini Risk Assessment Model: Point Value = 1 Point Value = 2 Point Value = 3 Point Value = 5 Age 41-60 Minor surgery BMI > 25 kg/m2 Swollen legs Varicose veins or History of unexplained or recurrent spontaneous Oral contraceptives or hormone replacement Sepsis (< 1 month) Serious lung disease, including pneumonia (< 1 month) Abnormal pulmonary function Acute myocardial infarction Congestive heart failure (< 1 month) History of inflammatory bowel disease Medical patient at bed rest Age 61-74 Arthroscopic surgery Major open surgery (> 45 min) Laparoscopic surgery (> 45 min) Malignancy Confined to bed (> 72 hours) Immobilizing plaster cast Central venous access Age >= 75 History of VTE Family history of VTE Factor V Leiden Prothrombin [id number] Lupus anticoagulant Anticardiolipin antibodies Elevated serum homocysteine Heparin-induced thrombocytopenia Other congenital or acquired thrombophilia Stroke (< 1 month) Elective arthroplasty Hip, pelvis, or leg fracture Acute spinal cord injury (< 1 month) Prophylaxis Regimen: Total Risk Factor Score Risk Level Prophylaxis Regimen 0-1 Low Early ambulation 2 Moderate Order ONE of the following: *Sequential Compression Device (SCD) *Heparin 5000 units SQ BID 3-4 Higher Order ONE of the following medications: *Heparin 5000 units SQ TID *Enoxaparin/Lovenox 40 mg SQ daily (WT < 150 kg, CrCl > 30 mL/min) *Enoxaparin/Lovenox 30 mg SQ daily (WT < 150 kg, CrCl > 10-29 mL/min) *Enoxaparin/Lovenox 30 mg SQ BID (WT < 150 kg, CrCl > 30 mL/min) AND/OR *Sequential Compression Device (SCD) 5 or more Highest Order ONE of the following medications: *Heparin 5000 units SQ TID (Preferred with Epidurals) *Enoxaparin/Lovenox 40 mg SQ daily (WT < 150 kg, CrCl > 30 mL/min) *Enoxaparin/Lovenox 30 mg SQ daily (WT < 150 kg, CrCl > 10-29 mL/min) *Enoxaparin/Lovenox 30 mg SQ BID (WT < 150 kg, CrCl > 30 mL/min) AND *Sequential Compression Device (SCD) Assessment and Plan - Assessment (1) Multiple sclerosis exacerbation Code(s): G35 - Multiple sclerosis Status: Acute Plan: Continue with IV steroids gram IV daily for 3 days and follow for taper as needed Neurology consultation Continue physical therapy and continue to reassess (2) Urinary retention Code(s): R33.9 - Retention of urine, unspecified Status: Acute Plan: Urinary retention appears to be a recurrent complaint with MS flares for this patient. Bladder scan shows 250 mL retained in the bladder Place [facility] No evidence of UTI on previous cultures in the ER (3) Nausea & vomiting Code(s): R11.2 - Nausea with vomiting, unspecified Status: Acute Plan: These are not typical symptoms of MS Continue with supportive care and diet as tolerated Phenergan as needed as patient says Zofran is not helpful Continue proton pump inhibitor (4) CIDP (chronic inflammatory demyelinating polyneuropathy) Code(s): G61.81 - Chronic inflammatory demyelinating polyneuritis Status: Acute (5) HTN (hypertension) Code(s): I10 - Essential (primary) hypertension Status: Acute Plan: Blood pressure regimen recently adjusted per her primary care doctor Continue amlodipine (6) SSS (sick sinus syndrome) Code(s): I49.5 - Sick sinus syndrome Status: Acute (7) Anxiety Code(s): F41.9 - Anxiety disorder, unspecified Status: Acute Plan: Continue Cymbalta - Plan Continue with thyroid medicine Discharge Planning: Pending clinical improvement H&P: Quality - VTE Deep Vein Thrombosis/Pulmonary Embolism Present on Admission: Yes
[2018-03-27] MEDS: amLODIPine 5 MG Tablet PO SCH (13:48)
[2018-03-27] MEDS: Heparin - SQ 10,000 UNITS/ML Vial SQ SCH ×2 (13:48→21:09)
[2018-03-27] MEDS ORDERED: MethylPREDNISolone Sod Suc Inj 1,000 MG in Dextrose 5% in Water Inj 100 ML IV.SIG ONE ×2 (14:00)
[2018-03-27] MEDS ORDERED: IVIG IV.SIG SCH (19:00)
[2018-03-27] MEDS: Celecoxib 200 MG Capsule PO SCH (20:17)
[2018-03-27] MEDS: Famotidine 20 MG Tablet PO SCH (20:17)
--- NOTE | 2018-03-27 20:22 | MB ---
cc: Endy Disla MD, PhD DATE: 03/27/2018 REASON FOR CONSULTATION: Multiple sclerosis exacerbation. HISTORY OF PRESENT ILLNESS: Ms. Patel is a 58-year-old woman known to me with relapsing remitting multiple sclerosis, which usually responds to IV Solu-Medrol and IVIG. She was most recently placed on a periodic infusion of IVIG and IV Solu-Medrol by her neurologist in [place], which has been maintaining her strength. In the past she was on some type of monthly IV infusion, possibly Tysabri, but does not recall the name. She states over the weekend on Tuesday, she [place], started noticing weakness in her legs which progressed through Tuesday to left arm weakness that was getting progressively worse and was admitted to the hospital. PAST MEDICAL AND SURGICAL HISTORY: She has got a pacemaker and she has a history of cardiac ablation, appendectomy, bowel resection surgery, knee replacement surgery, cholecystectomy, multiple sclerosis, sick sinus syndrome, umbilical hernia, depression, hysterectomy. MEDICATIONS: Currently Tylenol and [place] as needed for pain, milk of magnesia, Norvasc 2.5 mg daily, Celebrex 200 mg b.i.d., Cymbalta 60 mg daily, Pepcid 20 mg b.i.d., subcutaneous heparin 5000 units b.i.d., Lactulose, Synthroid, Protonix, Phenergan, Restoril. She was started on Solu-Medrol 1000 mg IV 1 time dose today and also received one time dose yesterday, 03/26/2018. NEUROLOGIC EXAMINATION: VITAL SIGNS: Blood pressure is 125/70, pulse 82, respiratory rate is 16, temperature 98.2 degrees. HIGHER CORTICAL FUNCTIONS: Normal. CRANIAL NERVES: Intact. MOTOR EXAM: She has 5/5 strength in the right arm. Left arm is 4/5 proximally and distally. Both legs 3/5 proximal and distal. Reflexes are 2+ symmetric. Babinski's are equivocal. IMAGING STUDIES: CT brain is normal. She cannot have MRI brain due to pacemaker. LABORATORY DATA: White count 4600, hemoglobin 11.5, hematocrit 34%, platelet count 368,000. Sodium is 140, potassium 4.1, chloride 105, CO2 27.3. The BUN is 12, creatinine 0.8, GFR 74, glucose 96, AST 20, ALT 33. IMPRESSION: Multiple sclerosis exacerbation. RECOMMENDATION: IV Solu-Medrol 250 mg IV every 6 hours for 3-5 days total as well as IVIG 0.4 g/kg IV daily for 5 days. Endy Disla MD, PhD CHARLES/FLO , 06:49 PM , 06:58 PM
[2018-03-27] MEDS: WATER IV.SIG SCH ×2 (21:03)
[2018-03-27] MEDS: DEXTROSE 5% IV.SIG SCH ×2 (21:03)
[2018-03-27] MEDS: METHYLPREDNISOLONE SOD SUC IV.SIG SCH ×2 (21:03)
[2018-03-27] MEDS: Acetaminophen 325 MG Tablet PO SCH (21:07)
[2018-03-27] MEDS: Sodium Chlor 0.9% Inj 500 ML IV.SIG SCH (21:34)
--- NOTE | 2018-03-27 22:04 | ECG ---
Date Performed: 03/26/2018 Time Performed: 17:54:42 PTAGE: 58 years EKG: Sinus rhythm NONSPECIFIC ST & T-WAVE ABNORMALITY BORDERLINE ECG PREVIOUS TRACING : 11/25/2015 19.40 Since the previous tracing, no significant change noted DOCTOR: Eran Sung Interpretating Date/Time 03/27/2018 22:02:11
[2018-03-27] MEDS: IVIG IV.SIG SCH (22:55)
[2018-03-27] MEDS: Temazepam 15 MG Capsule PO PRN (23:15)
[2018-03-28] MEDS: Temazepam 15 MG Capsule PO PRN (00:12)
[2018-03-28] MEDS: Morphine Inj 4 MG/ML Vial IV.PUSH PRN ×5 (00:12→20:59)
[2018-03-28] MEDS: Sod Chloride 0.9% Inj 1,000 ML IV.CONT SCH ×2 (03:32→12:39)
[2018-03-28] MEDS: WATER IV.SIG SCH ×4 (03:33→11:45)
[2018-03-28] MEDS: METHYLPREDNISOLONE SOD SUC IV.SIG SCH ×4 (03:33→11:45)
[2018-03-28] MEDS: DEXTROSE 5% IV.SIG SCH ×4 (03:33→11:45)
[2018-03-28] MEDS: Levothyroxine 150 MCG Tablet PO SCH (06:04)
[2018-03-28] MEDS: Heparin - SQ 10,000 UNITS/ML Vial SQ SCH ×3 (06:04→21:07)
--- NOTE | 2018-03-28 08:01 | P.PNNEU ---
Subjective Subjective Comments: No acute events reported Received first dose of IVIG and tolerated it well. Tolerating solumedrol Notes improvement in strength of BLE and LUE Active Medications: Active Medications Acetaminophen (Tylenol) 650 mg PO Q4H PRN PRN Reason: Temp > 100.4 Acetaminophen (Tylenol) 650 mg PO Q24H [facility] Stop: 04/01/18 20:59 Last Admin: 03/27/18 21:07 Dose: 650 mg Hydrocodone Bitart/Acetaminophen ([place] 10/325) 1 tab PO Q4H PRN PRN Reason: PAIN 3-5 Al Hydroxide/Mg Hydroxide (Milk Of Magnmarcus Liq) 30 ml PO Q12H PRN PRN Reason: Mild Constipation Amlodipine Besylate (Norvasc) 2.5 mg PO DAILY [facility] Last Admin: 03/27/18 13:48 Dose: 2.5 mg Bisacodyl (Dulcolax Supp) 10 mg RECTAL DAILY PRN PRN Reason: SEVERE CONSITIPATION Celecoxib (Celebrex) 200 mg PO BID [facility] Last Admin: 03/27/18 20:17 Dose: 200 mg Diphenhydramine HCl (Benadryl) 25 mg PO Q24H [facility] Stop: 04/01/18 20:59 Last Admin: 03/27/18 21:08 Dose: 25 mg Diphenhydramine HCl (Benadryl Inj) 50 mg IV.PUSH PRN PRN PRN Reason: ALLERGIC REACTION Stop: 04/02/18 21:59 Duloxetine HCl (Cymbalta) 60 mg PO DAILY [facility] Last Admin: 03/27/18 08:32 Dose: Not Given Epinephrine HCl (Epinephrine (1:1000) Inj) 0.3 mg OTHER Q10M PRN PRN Reason: Anaphylactic Reaction Stop: 04/02/18 21:59 Famotidine (Pepcid) 20 mg PO BID [facility] Last Admin: 03/27/18 20:17 Dose: 20 mg Heparin Sodium (Porcine) (Heparin Inj) 5,000 units SQ Q8HR [facility] Last Admin: 03/28/18 06:04 Dose: 5,000 units Sodium Chloride (Ns Inj) 1,000 mls @ 100 mls/hr IV.CONT .Q10H [facility] Last Admin: 03/28/18 03:32 Dose: 100 mls/hr Methylprednisolone Sodium (Succinate 250 mg/ Dextrose) 104 mls @ 216 mls/hr IV.SIG Q6H [facility] Last Infusion: 03/28/18 04:00 Dose: Infused Dextrose (D5w Inj) 500 mls @ 30 mls/hr OTHER Q24H [facility] Stop: 04/01/18 20:59 Last Admin: 03/27/18 21:35 Dose: 30 mls/hr Immune Globulin 40 gm/ Syringe (/Bag) 400 mls @ 0 mls/hr IV.SIG TITRATE [facility]; Protocol Stop: 04/01/18 21:59 Last Admin: 03/27/18 22:55 Dose: 30 mls/hr Sodium Chloride (Ns Inj) 500 mls @ 500 mls/hr IV.SIG Q24H [facility] Stop: 04/01/18 20:59 Last Infusion: 03/27/18 22:35 Dose: Infused Lactulose (Lactulose Liq) 30 ml PO DAILY PRN PRN Reason: SEVERE CONSITIPATION Levothyroxine Sodium (Synthroid) 150 mcg PO DAILY@0600 [facility] Last Admin: 03/28/18 06:04 Dose: 150 mcg Miscellaneous (Pill Splitter) 1 each [facility] Modafinil (Provigil) 100 mg PO DAILY [facility] Morphine Sulfate (Morphine Inj) 2 mg IV.PUSH Q4H PRN PRN Reason: PAIN 6-10 Last Admin: 03/28/18 06:04 Dose: 2 mg Pantoprazole Sodium (Protonix) 40 mg PO DAILY [facility] Promethazine HCl (Phenergan) 25 mg PO Q4H PRN PRN Reason: NAUSEA OR VOMITING Last Admin: 03/27/18 12:21 Dose: 25 mg Senna/Docusate Sodium (Dominga-Colace) 1 tab PO BID [facility] Last Admin: 03/27/18 20:17 Dose: 1 tab Sennosides (Senokot) 17.2 mg PO Q12H PRN PRN Reason: Moderate Constipation Temazepam (Restoril) 15 mg PO HS PRN PRN Reason: INSOMNIA Last Admin: 03/28/18 00:12 Dose: 15 mg Allergies/Adverse Reactions: Allergies Allergy/AdvReac Type Severity Reaction Status Date / Time azathioprine Allergy Severe GI UPSET Verified 03/26/18 17:24 hydrochlorothiazide Allergy Severe HIVES Verified 03/26/18 17:24 latex Allergy Severe ANAPHYLAXIS Verified 03/26/18 17:24 phenazopyridine Allergy Severe Rash Verified 03/26/18 17:24 levofloxacin Allergy Intermediate Hives Verified 03/26/18 17:24 lisinopril AdvReac Cough Verified 03/27/18 12:04 TECFIDERA Allergy Severe Hives Uncoded 03/20/18 22:17 MRI PRECAUTION AdvReac Severe NON REVO Uncoded 03/20/18 22:17 PACEMAKER 09/20/12 KMD *MDRO Multi-Drug Resistant AdvReac Unknown Vomiting Uncoded 03/20/18 22:17 Organism Physical Exam Vital signs: Vital Signs 03/27/18 08:00 03/27/18 12:00 03/27/18 15:39 Temperature 98.2 F 98.4 F 98.1 F Pulse Rate 91 H 84 84 Respiratory Rate 18 18 18 Blood Pressure 133/71 124/69 117/56 L Pulse Oximetry 95 96 96 03/27/18 20:00 03/27/18 22:55 03/28/18 00:00 Temperature 97.5 F L 97.2 F L 97.7 F Pulse Rate 78 77 74 Respiratory Rate 20 20 20 Blood Pressure 123/63 123/61 126/60 Pulse Oximetry 95 94 L Intake & Output 03/27/18 03/28/18 03/28/18 18:59 06:59 18:59 Intake Total 1856 / 1856 2528 / 2528 Output Total 350 / 350 Balance 1506 / 1506 2528 / 2528 Weight 98.9 kg Intake: IV 1116 / 1116 1708 / 1708 NS Inj 1,000 ML @ 100 mls/hr IV 1000 / 1000 1000 / 1000 .CONT .Q10H [facility] Rx#:[id number] SoluMEDROL Inj 250 MG In D5W 116 / 116 208 / 208 Inj 100 ML @ 216 mls/hr IV.SIG Q6H [facility] Rx#:[id number] NS Inj 500 ML @ 500 mls/hr IV. 500 / 500 SIG Q24H [facility] Rx#:[id number] Oral 740 / 740 420 / 420 Other 400 / 400 Output: Urine 350 / 350 Other: # Voids 1 3 Date of Last Bowel Movement 03/25/18 # Bowel Movements 0 - Routine Neurological Exam alert, oriented times three, speech fluent CN 2-12 normal MOTOR 4/5 LUE 5/5 RUE 4/5 BLE - Urinary Catheter Management Indwelling Urethral Catheter Cath placed during this visit: yes, but has since been removed by the nurse Reason for continuing: Acute urinary retention Insertion date: 03/27/18 Insertion time: 18:20 Removal date: 03/26/18 Removal time: 22:00 Straight Cath placed during this visit: yes, but has since been removed by the nurse Reason for continuing: Chronic Urinary Retention Insertion date: 03/27/18 Insertion time: 18:45 Removal date: 03/27/18 Removal time: 13:05 Review/Management - Review/Management Plan: continue current doses of iv solumedrol and ivig for 3-4 days depending on response
--- NOTE | 2018-03-28 09:38 | P.PN ---
Subjective Interval history: pt is resting comfortably on the hospital bed. Moving her L arm more. States that she is feels less weak than yesterday however her generalize pain persists despite 2 mg Morphine. Denies CP, SOB, nausea, fever, chills. Pt was seen with neurologist yesterday who recommends continuation of IVIG and IV salmeterol urinary cath is in place. Physical Exam Vital signs: Vital Signs 03/27/18 12:00 03/27/18 15:39 03/27/18 20:00 Temperature 98.4 F 98.1 F 97.5 F L Pulse Rate 84 84 78 Respiratory Rate 18 18 20 Blood Pressure 124/69 117/56 L 123/63 Pulse Oximetry 96 96 95 03/27/18 22:55 03/28/18 00:00 Temperature 97.2 F L 97.7 F Pulse Rate 77 74 Respiratory Rate 20 20 Blood Pressure 123/61 126/60 Pulse Oximetry 94 L Intake & Output 03/27/18 03/28/18 03/28/18 18:59 06:59 18:59 Intake Total 1856 / 1856 2528 / 2528 Output Total 350 / 350 Balance 1506 / 1506 2528 / 2528 Weight 98.9 kg Intake: IV 1116 / 1116 1708 / 1708 NS Inj 1,000 ML @ 100 mls/hr IV 1000 / 1000 1000 / 1000 .CONT .Q10H [facility] Rx#:[id number] SoluMEDROL Inj 250 MG In D5W 116 / 116 208 / 208 Inj 100 ML @ 216 mls/hr IV.SIG Q6H [facility] Rx#:[id number] NS Inj 500 ML @ 500 mls/hr IV. 500 / 500 SIG Q24H [facility] Rx#:[id number] Oral 740 / 740 420 / 420 Other 400 / 400 Output: Urine 350 / 350 Other: # Voids 1 3 Date of Last Bowel Movement 03/25/18 # Bowel Movements 0 Narrative: GENERAL: well developed, well nourished, in NAD SKIN: Warm and dry. HEAD: Atraumatic. Normocephalic. EYES: Pupils equal and round. No scleral icterus. No injection or drainage. ENT: No nasal bleeding or discharge. Mucous membranes pink and moist. NECK: Trachea midline. No JVD. CARDIOVASCULAR: Regular rate and rhythm. RESPIRATORY: No accessory muscle use. Clear to auscultation. Breath sounds equal bilaterally. GASTROINTESTINAL: Abdomen soft, non-tender, nondistended. Hepatic and splenic margins not palpable. MUSCULOSKELETAL: Extremities without clubbing, cyanosis, or edema. No obvious deformities. NEUROLOGICAL: Awake and alert.Weakness in bilateral extremities L>R. Motor weakness in LUE, Improved since yesterday. Normal speech. PSYCHIATRIC: Appropriate mood and affect; insight and judgment normal. - Constitutional no acute distress - Urinary Catheter Management Indwelling Urethral Catheter Cath placed during this visit: yes, but has since been removed by the nurse Reason for continuing: Acute urinary retention Insertion date: 03/27/18 Insertion time: 18:20 Removal date: 03/26/18 Removal time: 22:00 Straight Cath placed during this visit: yes, but has since been removed by the nurse Reason for continuing: Chronic Urinary Retention Insertion date: 03/27/18 Insertion time: 18:45 Removal date: 03/27/18 Removal time: 13:05 Results - Labs CBC & Chem 7: 03/27/18 04:50 03/27/18 04:50 Assessment and Plan - Plan Multiple Sclerosis Pt is tolerating Salmeterol and IVG well. Continue with steroids 1 gram IV daily for 2 more days and follow for taper as needed Continue IVIG 3 more days or as tolerated Continue physical therapy and continue to reassess Urinary Retention Urinary retention appears to be a recurrent complaint with MS flares for this patient. Bladder scan shows 250 mL retained in the bladder Place Saini No evidence of UTI on previous cultures in the ER CIDP, Chronic continue home medication and follow up with neurologist in [place] Hypertension Blood pressure regimen recently adjusted per her primary care doctor Continue amlodipine
[2018-03-28] MEDS: Modafinil 200 MG Tablet PO SCH (10:13)
[2018-03-28] MEDS: Duloxetine 60 MG DR Capsule PO SCH (10:14)
[2018-03-28] MEDS: amLODIPine 5 MG Tablet PO SCH (10:14)
[2018-03-28] MEDS: Famotidine 20 MG Tablet PO SCH ×2 (10:15→20:59)
[2018-03-28] MEDS: Celecoxib 200 MG Capsule PO SCH (10:15)
[2018-03-28] MEDS: Senna/Docusate Sodium 8.6/50 MG Tablet PO SCH ×2 (10:15→20:59)
--- NOTE | 2018-03-28 10:58 | P.PNIM ---
Subjective Interval history: Patient seen and evaluated today in follow-up for MS flare, improved with IV steroids and IVIG started by the neurology team. Nausea is improved Physical Exam Vital signs: Vital Signs 03/27/18 12:00 03/27/18 15:39 03/27/18 20:00 Temperature 98.4 F 98.1 F 97.5 F L Pulse Rate 84 84 78 Respiratory Rate 18 18 20 Blood Pressure 124/69 117/56 L 123/63 Pulse Oximetry 96 96 95 03/27/18 22:55 03/28/18 00:00 03/28/18 08:00 Temperature 97.2 F L 97.7 F 97.9 F Pulse Rate 77 74 75 Respiratory Rate 20 20 20 Blood Pressure 123/61 126/60 138/68 Pulse Oximetry 94 L 94 L Intake & Output 03/27/18 03/28/18 03/28/18 18:59 06:59 18:59 Intake Total 1856 / 1856 2528 / 2528 Output Total 350 / 350 Balance 1506 / 1506 2528 / 2528 Weight 98.9 kg Intake: IV 1116 / 1116 1708 / 1708 NS Inj 1,000 ML @ 100 mls/hr IV 1000 / 1000 1000 / 1000 .CONT .Q10H [facility] Rx#:[id number] SoluMEDROL Inj 250 MG In D5W 116 / 116 208 / 208 Inj 100 ML @ 216 mls/hr IV.SIG Q6H [facility] Rx#:[id number] NS Inj 500 ML @ 500 mls/hr IV. 500 / 500 SIG Q24H [facility] Rx#:[id number] Oral 740 / 740 420 / 420 Other 400 / 400 Output: Urine 350 / 350 Other: # Voids 1 3 Date of Last Bowel Movement 03/25/18 # Bowel Movements 0 Narrative: GENERAL: Well-nourished, well-developed patient. SKIN: Warm and dry. HEAD: Normocephalic. EYES: No scleral icterus. No injection or drainage. NECK: Supple, trachea midline. No JVD or lymphadenopathy. CARDIOVASCULAR: Regular rate and rhythm without murmurs, gallops, or rubs. RESPIRATORY: Breath sounds equal bilaterally. No accessory muscle use. GASTROINTESTINAL: Abdomen soft, non-tender, nondistended. MUSCULOSKELETAL: No cyanosis, or edema. BACK: Nontender without obvious deformity. No CVA tenderness. NEUROLOGICAL: Awake and alert. Cranial nerves II through XII intact. Motor and sensory grossly within normal limits. 3 out of 5 muscle strength in all muscle groups. Normal speech. - Urinary Catheter Management Indwelling Urethral Catheter Cath placed during this visit: yes, but has since been removed by the nurse Reason for continuing: Acute urinary retention Insertion date: 03/27/18 Insertion time: 18:20 Removal date: 03/26/18 Removal time: 22:00 Straight Cath placed during this visit: yes, but has since been removed by the nurse Reason for continuing: Chronic Urinary Retention Insertion date: 03/27/18 Insertion time: 18:45 Removal date: 03/27/18 Removal time: 13:05 Results - Labs CBC & Chem 7: 03/27/18 04:50 03/27/18 04:50 Assessment and Plan - Assessment (1) Multiple sclerosis exacerbation Code(s): G35 - Multiple sclerosis Status: Acute Plan: Continue with IV steroids gram IV daily for 2/3 days and follow for taper as needed Neurology consultation appreciated, IVIG* An anti-inflammatory and avoid escalating IV narcotics Continue physical therapy and continue to reassess (2) Urinary retention Code(s): R33.9 - Retention of urine, unspecified Status: Acute Plan: Urinary retention appears to be a recurrent complaint with MS flares for this patient. Bladder scan shows 250 mL retained in the bladder Saini No evidence of UTI on previous cultures in the ER (3) Nausea & vomiting Code(s): R11.2 - Nausea with vomiting, unspecified Status: Acute Plan: These are not typical symptoms of MS Continue with supportive care and diet as tolerated Phenergan as needed Continue proton pump inhibitor (4) CIDP (chronic inflammatory demyelinating polyneuropathy) Code(s): G61.81 - Chronic inflammatory demyelinating polyneuritis Status: Acute (5) HTN (hypertension) Code(s): I10 - Essential (primary) hypertension Status: Acute Plan: Blood pressure regimen recently adjusted per her primary care doctor Continue amlodipine (6) SSS (sick sinus syndrome) Code(s): I49.5 - Sick sinus syndrome Status: Acute (7) Anxiety Code(s): F41.9 - Anxiety disorder, unspecified Status: Acute Plan: Continue Cymbalta - Plan Continue with thyroid medicine Discharge Planning: Pending clinical improvement
[2018-03-28] MEDS: Ketorolac Inj 30 MG/ML (IVP) Vial IV.PUSH PRN ×2 (11:47→18:04)
[2018-03-28] MEDS ORDERED: MethylPREDNISolone Sod Suc Inj 1,000 MG in Dextrose 5% in Water Inj 100 ML IV.SIG SCH ×4 (12:00)
[2018-03-28] MEDS: Acetaminophen 325 MG Tablet PO SCH (20:57)
[2018-03-28] MEDS: Sodium Chlor 0.9% Inj 500 ML IV.SIG SCH (21:07)
[2018-03-28] MEDS: IVIG IV.SIG SCH (22:18)
[2018-03-29] MEDS: Sod Chloride 0.9% Inj 1,000 ML IV.CONT SCH ×2 (00:01→12:28)
[2018-03-29] MEDS: Temazepam 15 MG Capsule PO PRN (00:01)
[2018-03-29] MEDS: Ketorolac Inj 30 MG/ML (IVP) Vial IV.PUSH PRN ×2 (00:01→06:30)
[2018-03-29] MEDS: Morphine Inj 4 MG/ML Vial IV.PUSH PRN ×3 (01:09→11:44)
[2018-03-29] MEDS: Heparin - SQ 10,000 UNITS/ML Vial SQ SCH ×2 (05:29→14:25)
[2018-03-29] MEDS: Levothyroxine 150 MCG Tablet PO SCH (05:29)
[2018-03-29 08:32] VITALS: BP 157/76; PULSE 63; RESP 18; TEMP 96.7; O2SAT 95
--- NOTE | 2018-03-29 08:47 | P.PNNEU ---
Subjective Subjective Comments: No acute events reported Patient reports significant improvement in strength of BLE and LUE. States she would like to go home today to attend daughter's delivery. States she will be going to [place] and has a neurologist there who has been ordering outpatient ivig every two weeks Active Medications: Active Medications Acetaminophen (Tylenol) 650 mg PO Q4H PRN PRN Reason: Temp > 100.4 Acetaminophen (Tylenol) 650 mg PO Q24H [facility] Stop: 04/01/18 20:59 Last Admin: 03/28/18 20:57 Dose: 650 mg Hydrocodone Bitart/Acetaminophen ([place] 10/325) 1 tab PO Q4H PRN PRN Reason: PAIN 3-5 Al Hydroxide/Mg Hydroxide (Milk Of [place] Liq) 30 ml PO Q12H PRN PRN Reason: Mild Constipation Amlodipine Besylate (Norvasc) 2.5 mg PO DAILY [facility] Last Admin: 03/28/18 10:14 Dose: 2.5 mg Bisacodyl (Dulcolax Supp) 10 mg RECTAL DAILY PRN PRN Reason: SEVERE CONSITIPATION Diphenhydramine HCl (Benadryl) 25 mg PO Q24H [facility] Stop: 04/01/18 20:59 Last Admin: 03/28/18 20:58 Dose: 25 mg Diphenhydramine HCl (Benadryl Inj) 50 mg IV.PUSH PRN PRN PRN Reason: ALLERGIC REACTION Stop: 04/02/18 21:59 Duloxetine HCl (Cymbalta) 60 mg PO DAILY [facility] Last Admin: 03/28/18 10:14 Dose: 60 mg Epinephrine HCl (Epinephrine (1:1000) Inj) 0.3 mg OTHER Q10M PRN PRN Reason: Anaphylactic Reaction Stop: 04/02/18 21:59 Famotidine (Pepcid) 20 mg PO BID [facility] Last Admin: 03/28/18 20:59 Dose: 20 mg Heparin Sodium (Porcine) (Heparin Inj) 5,000 units SQ Q8HR [facility] Last Admin: 03/29/18 05:29 Dose: 5,000 units Sodium Chloride (Ns Inj) 1,000 mls @ 100 mls/hr IV.CONT .Q10H [facility] Last Admin: 03/29/18 00:01 Dose: 100 mls/hr Dextrose (D5w Inj) 500 mls @ 30 mls/hr OTHER Q24H [facility] Stop: 04/01/18 20:59 Last Admin: 03/28/18 22:17 Dose: 30 mls/hr Immune Globulin 40 gm/ Syringe (/Bag) 400 mls @ 0 mls/hr IV.SIG TITRATE ERV[facility]; Protocol Stop: 03/29/18 21:59 Last Admin: 03/28/18 22:18 Dose: 30 mls/hr Sodium Chloride (Ns Inj) 500 mls @ 500 mls/hr IV.SIG Q24H [facility] Stop: 04/01/18 20:59 Last Infusion: 03/28/18 22:15 Dose: Infused Ketorolac Tromethamine (Toradol Inj) 15 mg IV.PUSH Q6H PRN PRN Reason: BREAKTHROUGH PAIN Stop: 03/30/18 23:59 Last Admin: 03/29/18 06:30 Dose: 15 mg Lactulose (Lactulose Liq) 30 ml PO DAILY PRN PRN Reason: SEVERE CONSITIPATION Levothyroxine Sodium (Synthroid) 150 mcg PO DAILY@0600 [facility] Last Admin: 03/29/18 05:29 Dose: 150 mcg Miscellaneous (Pill Splitter) 1 each OTHER [facility] Modafinil (Provigil) 100 mg PO DAILY [facility] Last Admin: 03/28/18 10:13 Dose: 100 mg Morphine Sulfate (Morphine Inj) 2 mg IV.PUSH Q4H PRN PRN Reason: PAIN SCALE 6 TO 10 Last Admin: 03/29/18 05:30 Dose: 2 mg Pantoprazole Sodium (Protonix) 40 mg PO DAILY [facility] Last Admin: 03/28/18 10:15 Dose: 40 mg Promethazine HCl (Phenergan) 25 mg PO Q4H PRN PRN Reason: NAUSEA OR VOMITING Last Admin: 03/29/18 05:29 Dose: 25 mg Senna/Docusate Sodium (Dominga-Colace) 1 tab PO BID [facility] Last Admin: 03/28/18 20:59 Dose: Not Given Sennosides (Senokot) 17.2 mg PO Q12H PRN PRN Reason: Moderate Constipation Temazepam (Restoril) 15 mg PO HS PRN PRN Reason: INSOMNIA Last Admin: 03/29/18 00:01 Dose: 15 mg Allergies/Adverse Reactions: Allergies Allergy/AdvReac Type Severity Reaction Status Date / Time azathioprine Allergy Severe GI UPSET Verified 03/26/18 17:24 hydrochlorothiazide Allergy Severe HIVES Verified 03/26/18 17:24 latex Allergy Severe ANAPHYLAXIS Verified 03/26/18 17:24 phenazopyridine Allergy Severe Rash Verified 03/26/18 17:24 levofloxacin Allergy Intermediate Hives Verified 03/26/18 17:24 lisinopril AdvReac Cough Verified 03/27/18 12:04 TECFIDERA Allergy Severe Hives Uncoded 03/20/18 22:17 MRI PRECAUTION AdvReac Severe NON REVO Uncoded 03/20/18 22:17 PACEMAKER 09/20/12 KMD *MDRO Multi-Drug Resistant AdvReac Unknown Vomiting Uncoded 03/20/18 22:17 Organism Physical Exam Vital signs: Vital Signs 03/28/18 12:00 03/28/18 16:00 03/28/18 20:00 Temperature 98.4 F 97.2 F L 98.8 F Pulse Rate 77 82 76 Respiratory Rate 20 20 16 Blood Pressure 145/66 H 139/78 146/70 H Pulse Oximetry 93 L 96 95 03/28/18 22:18 03/29/18 00:00 03/29/18 08:31 Temperature 98.8 F 96.7 F L Pulse Rate 69 76 63 Respiratory Rate 20 16 18 Blood Pressure 141/71 H 140/84 157/76 H Pulse Oximetry 96 95 Intake & Output 03/28/18 03/29/18 03/29/18 18:59 06:59 18:59 Intake Total 1876 / 1876 2380 / 2380 Output Total 1200 / 1200 1950 / 1950 Balance 676 / 676 430 / 430 Intake: IV 1146 / 1146 1500 / 1500 NS Inj 1,000 ML @ 100 mls/hr IV 1000 / 1000 1000 / 1000 .CONT .Q10H [facility] Rx#:[id number] SoluMEDROL Inj 1,000 MG In D5W 116 / 116 Inj 100 ML @ 216 mls/hr IV.SIG DAILY@1200 [facility] Rx#:[id number] NS Inj 500 ML @ 500 mls/hr IV. 500 / 500 SIG Q24H [facility] Rx#:[id number] D5W Inj 500 ML @ 30 mls/hr 30 / 30 OTHER Q24H [facility] Rx#:[id number] Oral 730 / 730 480 / 480 Other 400 / 400 Output: Urine 1950 / 1950 Urine Amount (Catheter) 1200 / 1200 Indwelling Temp Sensing 1200 / 1200 Catheter Other: Date of Last Bowel Movement 03/25/18 - Routine Neurological Exam alert, speech normal Cn intact MOTOR 5/5 BUE. 4+/5 bilateral iliopsoas. 5/5 bilateral quadriceps, 5./5 bilateral hamstring and tibialis anterior - Urinary Catheter Management Indwelling Urethral Catheter Cath placed during this visit: yes, but has since been removed by the nurse Reason for continuing: Acute urinary retention Insertion date: 03/27/18 Insertion time: 18:20 Removal date: 03/26/18 Removal time: 22:00 Straight Cath placed during this visit: yes, but has since been removed by the nurse Reason for continuing: Chronic Urinary Retention Insertion date: 03/27/18 Insertion time: 18:45 Removal date: 03/27/18 Removal time: 13:05 Indwelling Temp Sensing Catheter Cath placed during this visit: no Review/Management - Review/Management Plan: She has responded very well to two doses of ivig and the several days of iv solumedrol. Will d/c ivig and solumedrol at this time. It is ok from neurology standpoint to tn home and she can follow up with her neurologist in [place].
[2018-03-29] MEDS: Senna/Docusate Sodium 8.6/50 MG Tablet PO SCH (09:17)
[2018-03-29] MEDS: Duloxetine 60 MG DR Capsule PO SCH (09:18)
[2018-03-29] MEDS: amLODIPine 5 MG Tablet PO SCH (09:18)
[2018-03-29] MEDS: Famotidine 20 MG Tablet PO SCH (09:18)
[2018-03-29] MEDS: Modafinil 200 MG Tablet PO SCH (09:20)
--- NOTE | 2018-03-29 10:33 | P.PN ---
Subjective Interval history: Pt is resting comfortably on hospital Bed. Has full ROM of lower and upper extremities. Reports improvement of pain and weakness. was evaluated by radiologist earlier today who suggested D/C secondary to significant improvement following IVIG and steroids. Pt reports that she feels well and is ready to go home Physical Exam Vital signs: Vital Signs 03/28/18 12:00 03/28/18 16:00 03/28/18 20:00 Temperature 98.4 F 97.2 F L 98.8 F Pulse Rate 77 82 76 Respiratory Rate 20 20 16 Blood Pressure 145/66 H 139/78 146/70 H Pulse Oximetry 93 L 96 95 03/28/18 22:18 03/29/18 00:00 03/29/18 08:31 Temperature 98.8 F 96.7 F L Pulse Rate 69 76 63 Respiratory Rate 20 16 18 Blood Pressure 141/71 H 140/84 157/76 H Pulse Oximetry 96 95 Intake & Output 03/28/18 03/29/18 03/29/18 18:59 06:59 18:59 Intake Total 1876 / 1876 2380 / 2380 Output Total 1200 / 1200 1949 / 1950 1000 / 1000 Balance 676 / 676 430 / 430 -1000 / -1000 Intake: IV 1146 / 1146 1500 / 1500 NS Inj 1,000 ML @ 100 mls/hr IV 1000 / 1000 1000 / 1000 .CONT .Q10H [facility] Rx#:[id number] SoluMEDROL Inj 1,000 MG In D5W 116 / 116 Inj 100 ML @ 216 mls/hr IV.SIG DAILY@1200 [facility] Rx#:[id number] NS Inj 500 ML @ 500 mls/hr IV. 500 / 500 SIG Q24H [facility] Rx#:[id number] D5W Inj 500 ML @ 30 mls/hr 30 / 30 OTHER Q24H [facility] Rx#:[id number] Oral 730 / 730 480 / 480 Other 400 / 400 Output: Urine 1949 / 1949 Urine Amount (Catheter) 1200 / 1200 1000 / 1000 Indwelling Temp Sensing 1200 / 1200 Catheter Indwelling Urethral Catheter 1000 / 1000 Other: Date of Last Bowel Movement 03/25/18 Narrative: GENERAL: SKIN: Warm and dry. HEAD: Atraumatic. Normocephalic. EYES: Pupils equal and round. No scleral icterus. No injection or drainage. ENT: No nasal bleeding or discharge. Mucous membranes pink and moist. NECK: Trachea midline. No JVD. CARDIOVASCULAR: Regular rate and rhythm. 2/6 systolic murmur, unchanged from previous days. RESPIRATORY: No accessory muscle use. Clear to auscultation. Breath sounds equal bilaterally. GASTROINTESTINAL: Abdomen soft, non-tender, nondistended. Hepatic and splenic margins not palpable. MUSCULOSKELETAL: Extremities without clubbing, cyanosis, or edema. No obvious deformities. NEUROLOGICAL: Awake and alert. No obvious cranial nerve deficits. Motor grossly within normal limits. 5/5 muscle strength in RUE,RLE, LLE. 4/5 strength LUE. Normal speech. PSYCHIATRIC: Appropriate mood and affect; insight and judgment normal. - Urinary Catheter Management Indwelling Urethral Catheter Cath placed during this visit: yes, but has since been removed by the nurse Reason for continuing: Acute urinary retention Insertion date: 03/27/18 Insertion time: 18:20 Removal date: 03/26/18 Removal time: 22:00 Straight Cath placed during this visit: yes, but has since been removed by the nurse Reason for continuing: Chronic Urinary Retention Insertion date: 03/27/18 Insertion time: 18:45 Removal date: 03/27/18 Removal time: 13:05 Indwelling Temp Sensing Catheter Cath placed during this visit: no Results - Labs CBC & Chem 7: 03/27/18 04:50 03/27/18 04:50 Assessment and Plan - Plan Multiple Sclerosis Pt is tolerating Salmeterol and IVIG well. Continue with steroids 1 gram IV today, followed by taper Continue IVIG today as tolerated Continue physical therapy and continue to reassess Per neurologist, pt is clinically well enough to be discharged and followed up by her own neurologist in [place] Urinary Retention Urinary retention appears to be a recurrent complaint with MS flares for this patient. Saini catheter in place with 500 ml clear urine CIDP, Chronic continue home medication and follow up with neurologist in [place] Hypertension Blood pressure regimen recently adjusted per her primary care doctor Continue amlodipine
[2018-03-29] MEDS ORDERED: Heparin Central Flush 100 UNIT/ML 5 ML Vial IV.FLUSH PRN ×2 (12:02)
--- NOTE | 2018-03-29 12:28 | P.DS ---
Date of admission: 03/26/18 19:15 Primary care physician: UNKNOWN Brief History from admission: Patient is a 58-year-old female came to the hospital complaining of weakness for 2 days worse in the lower extremities and left upper extremity. She recently had a urinary tract infection and had been out of her usual neurological follow-up due to recent back surgery and on vacation to [place]. She normally takes Cymbalta, Celebrex and modafinil. She had also been on IVIG and steroids but this is what she had been out of since the surgical procedures. She was doing reasonably well until she developed a urinary tract infection and she came to the emergency room for this and received some Keflex. She also felt weak after she went to the beach and was overheated and finally became so weak that she came to the emergency room for further evaluation. She has had difficult ambulating and urinating and blurred vision. She appears to have MS flare and has been admitted for evaluation and treatment of the same. She did receive some Phenergan for some nausea which improved her symptoms and has been started on IV Solu-Medrol. DS: Diagnosis - Discharge Diagnosis (1) Multiple sclerosis exacerbation Status: Acute (2) Urinary retention Status: Acute (3) Nausea & vomiting Status: Acute (4) CIDP (chronic inflammatory demyelinating polyneuropathy) Status: Acute (5) HTN (hypertension) Status: Acute (6) SSS (sick sinus syndrome) Status: Acute (7) Anxiety Status: Acute DS: Summary Hospital Course: Patient is a 58-year-old female with atypical presentation of MS. It appeared to improve quite readily with IV steroids and IVIG. She is seen by neurology. Symptoms resolved and patient was discharged home - Time Spent with Patient Total time spent providing and/or coordinating discharge services: - Quality: VTE Deep Vein Thrombosis/Pulmonary Embolism Present on Admission: Yes Exam Vital signs: Vital Signs 03/28/18 16:00 03/28/18 20:00 03/28/18 22:18 Temperature 97.2 F L 98.8 F Pulse Rate 82 76 69 Respiratory Rate 20 16 20 Blood Pressure 139/78 146/70 H 141/71 H Pulse Oximetry 96 95 03/29/18 00:00 03/29/18 08:31 Temperature 98.8 F 96.7 F L Pulse Rate 76 63 Respiratory Rate 16 18 Blood Pressure 140/84 157/76 H Pulse Oximetry 96 95 Intake & Output 03/28/18 03/29/18 03/29/18 18:59 06:59 18:59 Intake Total 1876 / 1876 2380 / 2380 Output Total 1200 / 1200 1949 / 1950 1000 / 1000 Balance 676 / 676 430 / 430 -1000 / -1000 Intake: IV 1146 / 1146 1500 / 1500 NS Inj 1,000 ML @ 100 mls/hr IV 1000 / 1000 1000 / 1000 .CONT .Q10H [facility] Rx#:[id number] SoluMEDROL Inj 1,000 MG In D5W 116 / 116 Inj 100 ML @ 216 mls/hr IV.SIG DAILY@1200 [facility] Rx#:[id number] NS Inj 500 ML @ 500 mls/hr IV. 500 / 500 SIG Q24H [facility] Rx#:[id number] D5W Inj 500 ML @ 30 mls/hr 30 / 30 OTHER Q24H [facility] Rx#:[id number] Oral 730 / 730 480 / 480 Other 400 / 400 Output: Urine 1949 Urine Amount (Catheter) 1200 / 1200 1000 / 1000 Indwelling Temp Sensing 1200 / 1200 Catheter Indwelling Urethral Catheter 1000 / 1000 Other: Date of Last Bowel Movement 03/25/18 Narrative: GENERAL: Well-nourished, well-developed patient. SKIN: Warm and dry. HEAD: Normocephalic. EYES: No scleral icterus. No injection or drainage. NECK: Supple, trachea midline. No JVD or lymphadenopathy. CARDIOVASCULAR: Regular rate and rhythm without murmurs, gallops, or rubs. RESPIRATORY: Breath sounds equal bilaterally. No accessory muscle use. GASTROINTESTINAL: Abdomen soft, non-tender, nondistended. MUSCULOSKELETAL: No cyanosis, or edema. BACK: Nontender without obvious deformity. No CVA tenderness. NEUROLOGICAL: Awake and alert. Cranial nerves II through XII intact. Motor and sensory grossly within normal limits. Five out of 5 muscle strength in all muscle groups. Normal speech. Results Procedures completed during hospitalization: None - Impressions ITS Impressions Head CT 03/26/18 17:45 CONCLUSION: 1. Negative for an acute process . Discharge Plan - Discharge Disposition Patient Disposition: Discharge Home - Discharge Condition Condition: Stable - Discharge Order Discharge Orders: Discharge Order (Routine); Ordered 03/29/18 Ordered By: Cynthia Carreon - Discharge Details Anticipated Discharge Date: 03/29/18 - Physicians Team Primary Care Provider: UNKNOWN, Attending Provider: Cynthia Carreon Other Providers: Endy Disla MD, PhD
== END 2018-03-29 16:47 | disposition home or self-care (01) ==
LOC: PHED 17:12 → PHEDA 19:15 → PH3 21:20 → PHEDA 21:30
PROVIDERS: ADMIT Hospitalist; ATTEND Hospitalist